=== PATIENT | male | born 2000 | race Two or more races ===

== ENCOUNTER 2024-08-15 18:37 | Emergency (ER) | payer MEDICAID, SELFPAY ==
--- NOTE | 2024-08-15 18:50 | PC.NURSE ---
no answer in lobby for vital signs
--- NOTE | 2024-08-15 19:00 | PC.NURSE ---
no answer in lobby for vital signs
--- NOTE | 2024-08-15 19:45 | PC.NURSE ---
no answer in lobby for vital signs
== END 2024-08-15 19:45 | disposition left against medical advice (07) ==
LOC: SERX 19:48
PROVIDERS: Emergency Provider Emergency Medicine
DX: Z53.21 Procedure and treatment not carried out due to patient leaving prior to being seen by health care provider (principal)

== ENCOUNTER 2024-12-21 10:37 | Emergency (ER) | payer MEDICAID, SELFPAY ==
[2024-12-21 10:48] VITALS: BP 179/117; PULSE 84; RESP 18; TEMP 36.6; O2SAT 98
--- NOTE | 2024-12-21 10:50 | EKG_ITS ---
[facility] Test Date: 2024-12-21 Pat Name: ELISA REESE Department: Room: - Gender: Male Software Lead: : 2000 Requested By: Juan Sena (TUBER MACHINE CUTTER) Order Number: [id number] Reading MD: Juan Sena (TUBER MACHINE CUTTER) Measurements Intervals [place] Rate: 81 P: 57 WA: 155 QRS: 50 QRSD: 81 T: 58 QT: 394 QTc: 459 Interpretive Statements SINUS RHYTHM LEFT ATRIAL ENLARGEMENT [-0.15mV P-WAVE IN V1/V2] NONSPECIFIC T-WAVE ABNORMALITY Compared to ECG 07/12/2023 05:07:51 Atrial abnormality now present ST (T wave) deviation no longer present Early repolarization no longer present Possible ischemia no longer present T-wave abnormality still present /store/S0/[id number]/ecg/[id number].pdf
--- NOTE | 2024-12-21 10:54 | XR_ITS ---
Examination: PA lateral chest 2 views TECHNIQUE: Upright PA lateral chest 2 views Date and time: December 21, 2024 1103 hours, comparison July 12, 2023 INDICATIONS: Chest pain shortness of breath tachycardia today. FINDINGS: Mild prominence of ventricle Mild vascular congestion. No lobar pneumonia or pulmonary edema IMPRESSION: Mild vascular congestion. No lobar pneumonia or pulmonary edema
--- NOTE | 2024-12-21 10:54 | EDRME_ITS ---
Rapid Medical Screening Exam [facility] Arrival date/time: 12/21/24 10:37 24-year-old male ESRD on dialysis presents to the emergency department of complaints of chest pressure and generalized weakness Chief Complaint: Shortness of Breath/Dyspnea Vital signs: Vital Signs Temperature 98 F 12/21/24 10:48 Pulse Rate 84 12/21/24 10:48 Respiratory Rate 18 12/21/24 10:48 Blood Pressure 179/117 H 12/21/24 10:48 Pulse Oximetry (%) 98 12/21/24 10:48 Oxygen Delivery Method Room Air 12/21/24 10:48
[2024-12-21 11:17] LABS: Basophils # (Auto) 0.0 Thou/mm3 (0.0-0.2); Basophils % (Auto) 1 % (0-2.5); Eosinophils # (Auto) 0.1 Thou/mm3 (0.0-0.5); Eosinophils % (Auto) 1 % (0-10); Hematocrit 29.8 % (41.0-53.0); Hemoglobin 10.8 g/dL (13.5-16.0); Immature Granulocytes Auto 0.02 Thou/mm3 (0.00-0.00); Lymphocytes # (Auto) 1.0 Thou/mm3 (1.0-4.8); Lymphocytes % (Auto) 12 % (10-50); Mean Corpuscular HGB Conc 36.2 g/dl (31.0-37.0); Mean Corpuscular Hemoglobin 36.6 pg (25.0-35.0); Mean Corpuscular Volume 101 fL (80-100); Monocytes # (Auto) 0.5 Thou/mm3 (0.0-0.8); Monocytes % (Auto) 5 % (0-12); Neutrophils # (Auto) 6.8 Thou/mm3 (1.8-7.7); Neutrophils % (Auto) 81 % (37-80); Nucleated Red Blood Cell # 0.00 Thou/mm3 (0.00-0.00); Nucleated Red Blood Cell % 0 /100 WBC (0); Platelet Count 112 Thou/mm3 (140-440); RDW Standard Deviation 52.3 fL (35.1-43.9); Red Blood Count 2.95 Miln/mm3 (4.50-5.90); White Blood Count 8.4 Thou/mm3 (3.8-10.6)
[2024-12-21 11:32] LABS: INR 1.1 (0.9-1.3); Partial Thromboplastin Time 26.4 Seconds (22.0-36.0); Prothrombin Time 11.6 Seconds (9.0-12.2)
[2024-12-21 11:39] LABS: B-Type Natriuretic Peptide 999 pg/mL (0-100)
--- NOTE | 2024-12-21 12:02 | PD.EDSOB ---
ED SOB =RME/HPI General Chief Complaint: Shortness of Breath/Dyspnea Stated Complaint: SOB, HEART RACING, DOESN'T FEEL WELL Time Seen by Provider: 12/21/24 11:53 Arrival date/time: 12/21/24 10:37 RME / HPI RME / HPI Narrative: 24-year-old male patient with significant history of ESRD on dialysis, was sent to us from hemodialysis, after patient done with his dialysis this morning, patient complaining of generalized body weakness, body aches, and was told to go to the emergency room because earlier the potassium was high he does not know the number. Patient is denying any cough denies any fever patient is ambulatory denies any other complaints. Related Data Home Medications ?Medication ?Instructions ?Recorded ?Confirmed calcium acetate 667 mg tablet 1,334 mg PO TID 06/20/23 06/20/23 Previous Rx's ?Medication ?Instructions ?Recorded amlodipine 10 mg tablet 10 mg PO QDAY #30 tabs 06/24/23 lisinopril 2.5 mg tablet 2.5 mg PO QDAY #30 tabs 06/24/23 vitamin B complex-vitamin C-folic 1 tab PO QDAY #30 tabs 06/24/23 acid 0.8 mg tablet (Nephro-Deshawn) Allergies Allergy/AdvReac Type Severity Reaction Status Date / Time No Known Allergies Allergy Verified 08/15/24 18:40 Review of Systems Review of Systems Narrative Review of Systems: Review of system reviewed and within normal limits except mentioned in HPI ED Exam Narrative Physical exam: VITAL SIGNS: Reviewed. GENERAL APPEARANCE: Alert and interactive, follows commands, no acute distress, HEAD AND FACE: Non-traumatic. ENT: PERRL, pink conjunctivitis, eyelid no trauma, Mucous membrane moist. NECK: Supple, nontender, no nuchal rigidity. CHEST: No tenderness, no crepitus, no paradoxical movement, no retractions. LUNGS: Clear, well ventilated, symmetric, no rales, no wheezing, no ronchi, no stridor, good breath sounds bilaterally. HEART: Regular rate, regular rhythm, no murmur, no gallops. ABDOMEN: Soft, positive bowel sounds, nondistended, no guarding, nontender, no rebound, no masses, RECTAL: Deferred. GENITAL: Deferred. NEUROLOGICAL: Gross motor function intact sensory function intact, Appropriate for age. MUSCULOSKELETAL: low back nontender, full range of motion. EXTREMITIES: Left arm AV fistula with thrill, nontender, full range of motion. SKIN: Color pink, dry, no rash, no lacerations, no abrasions, no contusions. LYMPHATICS: Deferred. Course Quality Measures none Orders Category Date Time Status Rigging Man NOW Care 12/21/24 10:54 Active EKG (ED ONLY) *Do not use* NOW Care 12/21/24 10:50 Completed EKG (ED Only) Stat Exams 12/21/24 10:50 Draft XR chest 2V Stat Exams 12/21/24 10:54 Completed B-Type Natriuretic Peptide Stat Lab 12/21/24 11:11 Completed CBC Stat Lab 12/21/24 11:11 Completed Comprehensive Metabolic Panel Stat Lab 12/21/24 11:11 Completed Drug Screen,Urine Stat Lab 12/21/24 10:54 Ordered Magnesium Stat Lab 12/21/24 11:11 Completed Partial Thromboplastin Time Stat Lab 12/21/24 11:11 Completed Prothrombin Time with INR Stat Lab 12/21/24 11:11 Completed Troponin I Stat Lab 12/21/24 11:11 Completed Urinalysis, C/S if Indicated Stat Lab 12/21/24 10:54 Ordered NIFEdipine [Procardia] Med 12/21/24 13:05 Discontinued 10 mg .ROUTE .STK-MED ONE NIFEdipine [Procardia] Med 12/21/24 12:51 Discontinued 20 mg PO X1 ONE Vital Signs Vital signs: Vital Signs Temperature 98 F 12/21/24 10:48 Pulse Rate 84 12/21/24 10:48 Respiratory Rate 18 12/21/24 10:48 Blood Pressure 179/117 H 12/21/24 10:48 Pulse Oximetry (%) 98 12/21/24 10:48 Oxygen Delivery Method Room Air 12/21/24 10:48 Shortness of Breath / Dyspnea MDM Narrative MDM Narrative:: 24-year-old male patient with significant history of ESRD on dialysis, was sent to us from hemodialysis, after patient done with his dialysis this morning, patient complaining of generalized body weakness, body aches, and was told to go to the emergency room because earlier the potassium was high he does not know the number. Patient is denying any cough denies any fever patient is ambulatory denies any other complaints. EKG showed normal sinus rhythm, ventricular rate of 81 bpm, no ST segment elevation or depression noted. Patient's laboratory workup came back with chronic kidney disease otherwise potassium is normal. Patient is unable to give us urine sample. Patient was given Procardia for blood pressure that is 179/117. Significant proving of hypertension noted in the emergency room. Patient is stable for discharge home. Patient data External records reviewed:: None Clinical information provided by:: patient Social determinants that could affect healthcare access:: none Patient has the following chronic illnesses:: ESRD hypertension How is presenting disease/condition affected by chronic disease/condition?: exacerbated by Evaluation data The following diagnostics were reviewed and interpreted by me:: lab results and EKG tracing(s) Lab and/or radiology exams considered but not ordered:: None Interpretation Summary: See results MDM Medications / Prescriptions Medications or Prescriptions considered but not ordered:: None Medication administrations:: Medication Administration History Discontinued Medications Nifedipine (Nifedipine 10 Mg Capsule) 20 mg PO X1 ONE Stop: 12/21/24 12:52 Last Admin: 12/21/24 13:02 Dose: 20 mg Documented By: GIOVANNY Nifedipine (Nifedipine 10 Mg Capsule) Confirm Administered Dose 10 mg .ROUTE .STK-MED ONE Stop: 12/21/24 13:06 Last Admin: 12/21/24 13:10 Dose: 10 mg Documented By: GIOVANNY Comments: WAS USED TO REPLACE CAPSULE THAT WAS DROPPED ON FLOOR TO COMPLETE FULL DOSE OF 20MG. Procardia Consultations Consultation(s) initiated? (list below): No Diagnosis Shortness of Breath Differential Diagnosis: congestive heart failure and community acquired pneumonia Most likely diagnosis given after review of the tests above:: Generalized weakness, ESRD Admission Indicated Admission indicated?: not indicated Admission Request Was there a request for admission?: No Disposition Plan Disposition Plan: Discharge Discharge Attestation Discharge Attestation: The patient was given an opportunity to ask questions and understood the discharge instructions. Discharge instructions specifically effects, indications for sooner follow up or return to the emergency department, and the expected course of current diagnosis. Patient condition: Stable Discharge Plan Plan Patient Disposition: HOME (Self Care) Discharge Disposition comment: Stable Prescriptions/Referrals Prescriptions/Med Rec: No Action calcium acetate 667 mg Tablet 1,334 mg PO TID amlodipine 10 mg tablet 10 mg PO QDAY Qty: 30 0RF lisinopril 2.5 mg Tablet 2.5 mg PO QDAY Qty: 30 0RF Nephro-Deshawn 0.8 mg Tablet 1 tab PO QDAY Qty: 30 0RF Referrals: Dayo Maldonado MD [Primary Care Provider, Family Practice] - In 1 week Problem List Clinical Impression: End-stage renal disease (ESRD), Weakness generalized Patient/Caregiver Discharge Instructions Discharge Activity: activity as tolerated Education Materials: Hemodialysis Additional Instructions: Thank you for the opportunity for serving you today. You are stable for discharged . You are advised to: Follow-up with your PCP in 1 to 2 days Return to ED for worsening of symptoms Print Language: Serbian Stand Alone Forms: Maria C Award Info., Patient Portal Info Letter PA/SPEECH PATHOLOGY SUPERVISOR Supervising Physician PA/SPEECH PATHOLOGY SUPERVISOR Supervising Physician: MD Tripp
[2024-12-21 12:07] LABS: Alanine Aminotransferase < 7 U/L (10-49); Albumin, Serum 4.7 gm/dL (3.5-5.0); Albumin/Globulin Ratio 2.0 (1.2-2.2); Alkaline Phosphatase 79 U/L (46-116); Anion Gap 14 (7-16); Aspartate Amino Transferase < 8 U/L (0-34); BUN/Creatinine Ratio 2 Ratio (12-20); Bilirubin,Total 1.0 mg/dL (0.3-1.2); Blood Urea Nitrogen 29 mg/dL (9-23); Calcium 9.3 mg/dL (8.3-10.6); Calcium (Corrected) 9.3 mg/dL (8.5-10.1); Carbon Dioxide 29.9 mMol/L (20.0-31.0); Chloride 89 mMol/L (98-107); Creatinine (Component) 11.8 mg/dL (0.6-1.3); Globulin 2.3 gm/dL (2.3-3.5); Glucose 139 mg/dL (74-106); Magnesium 1.7 mg/dL (1.6-2.6); Osmolality,Calculated 274 (275-295); Potassium 3.7 mMol/L (3.4-5.1); Sodium 133 mMol/L (136-145); Total Protein 7.0 gm/dL (5.7-8.2); Troponin I < 0.020 ng/mL (0.0-0.045); eGFR 6 See Note
[2024-12-21 13:02] VITALS: BP 179/117; PULSE 84
--- NOTE | 2024-12-21 13:08 | PC.NURSE ---
PT DROPPED 1 CAPSULE ON FLOOR, IT WAS DISCARDED, THIS RN DID AN OVERRIDE IN [place] TO REPLACE CAPSULE, SPOKE W/PHARMACY VLADIMIR WHO SAID IT WAS OK, MED DOES NOT NEED TO BE RE-SCANNED MED WAS ALREADY SCANNED PRIOR TO PT DROPPING THE MEDICATION
[2024-12-21 13:10] VITALS: BP 179/117; PULSE 84
[2024-12-21 13:52] VITALS: BP 162/106; PULSE 102; RESP 16; TEMP 36.6; O2SAT 99
--- NOTE | 2024-12-21 13:53 | PC.NURSE ---
PROVIDER SATISFIED WITH BP, OK TO D/C
== END 2024-12-21 14:00 | disposition home or self-care (01) ==
PROVIDERS: Nurse Practitioner Primary Care; Emergency Provider Family Medicine; PCP Family Medicine
DX: I12.0 Hypertensive chronic kidney disease with stage 5 chronic kidney disease or end stage renal disease (principal); N18.6 End stage renal disease; R53.1 Weakness; R07.9 Chest pain, unspecified; R06.02 Shortness of breath; R94.31 Abnormal electrocardiogram [ECG] [EKG]; Z99.2 Dependence on renal dialysis
CPT/HCPCS: 36415; 71046; 80053; 80307; 81001; 83735; 83880; 84484; 85025; 85610; 85730; 93005; 99284; A9270

== ENCOUNTER 2024-12-21 15:44 | Emergency (ER) | payer MEDICAID, SELFPAY ==
[2024-12-21 15:55] VITALS: BP 167/107; PULSE 82; RESP 16; TEMP 37.2; O2SAT 98
--- NOTE | 2024-12-21 17:01 | EDNOTE_ITS ---
ED Anxiety RME/HPI General Chief Complaint: Anxiety Stated Complaint: ANXIETY, TIRED, DOESN'T FEEL WELL Time Seen by Provider: 12/21/24 16:01 Arrival date/time: 12/21/24 15:44 24-year-old male presents to the emergency department today stating that he feels anxious patient was evaluated earlier today and had a full workup Limitations: no limitations Related Data Home Medications ?Medication ?Instructions ?Recorded ?Confirmed calcium acetate 667 mg tablet 1,334 mg PO TID 06/20/23 06/20/23 Previous Rx's ?Medication ?Instructions ?Recorded amlodipine 10 mg tablet 10 mg PO QDAY #30 tabs 06/23 lisinopril 2.5 mg tablet 2.5 mg PO QDAY #30 tabs 06/04 04/28 vitamin B complex-vitamin C-folic 1 tab PO QDAY #30 ta bs 06/24/23 acid 0.8 mg tablet (Nephro-Deshawn) ondansetron 4 mg disintegrating 4 mg PO Q6H PRN nausea and 12/22/24 tablet vomiting #20 tabs Allergies Allergy/AdvReac Type Severity Reaction Status Date / Time No Known Allergies Allergy Verified 08/15/24 18:40 Review of Systems Review of Systems Systems Reviewed: All systems reviewed, normal except as documented Constitutional Constitutional: Reports system reviewed and no additional complaints, except as documented, Denies fever(s) and Denies headache(s) Eyes Eyes: Reports system reviewed and no additional complaints, except as documented and Denies blurry vision ENT Ears, Nose, Mouth, and Throat: Reports system reviewed and no additional complaints, except as documented, Denies headache(s), Denies nasal congestion and Denies nasal discharge Cardiovascular Cardiovascular: Reports system reviewed and no additional complaints, except as documented, Denies chest pain and Denies dyspnea Respiratory Respiratory: Reports system reviewed and no additional complaints, except as documented, Denies chest congestion, Denies cough and Denies dyspnea Gastrointestinal Gastrointestinal: Reports system reviewed and no additional complaints, except as documented and Denies abdominal pain Integumentary/Breasts Skin/Breast: Reports system reviewed and no additional complaints, except as documented and Denies rash Neurologic Neurologic: Reports system reviewed and no additional complaints, except as documented, Reports as per HPI and Denies headache(s) Psychiatric Psychiatric: Reports system reviewed and no additional complaints, except as documented and Reports anxiety Past Medical History Past Medical History NEUROLOGIC: Negative Neurological Disorders or Seizures CARDIAC: Positive Cardiac Disorders and Hypertension; Negative Congestive Heart Failure, Edema, Cellulitis or Varicose Veins RESPIRATORY: Negative Chronic Obstructive Pulmonary Disease (COPD), Asthma, Tuberculosis or Sleep Apnea GASTROINTESTINAL: Negative Gastrointestinal Disorders, Hepatitis, Pancreatitis, Gall Bladder Disease, Ulcer, Hemorrhoids or Gastroesophageal Reflux Disease GENITOURINARY: Positive Genitourinary Disorders, Renal Disease and Dialysis MUSCULOSKELETAL: Positive Fractures; Negative Musculoskeletal Disorders ENDOCRINE: Negative Endocrine Disorders, Diabetes Mellitus Type 1 or Diabetes Mellitus Type 2 HEMATOLOGIC: Positive Blood Disorders and Anemia; Negative Sickle Cell Disease OTHER HISTORY: Positive Hospitalization, Chicken Pox, Measles and Mumps; Negative Autoimmune Disease, Shingles, Falls, Blood Transfusions, Blood Transfusion Reaction, Anesthesia Reactions, Chemotherapy, Radiation Therapy, MRSA or Cancer Family History FAMILY HISTORY: Positive Family Surgery; Negative Family Psychiatric Problems, Family Respiratory Disorders, Family Cardiac Disorders, Family Gastrointestinal Problems, Family Cancer or Family Anesthesia Reaction Surgical History SURGICAL: Positive Abdominal Surgery; Negative Pacemaker Social History SMOKING STATUS: Current every day smoker SUBSTANCE USE: does not use ED Exam General Limitations: Present no limitations General appearance: Present alert and in no apparent distress Head Head exam: Present atraumatic, normocephalic and normal inspection Eye Eye exam: Present normal appearance, PERRL and EOMI; Absent conjunctival injection ENT ENT exam: Present normal exam, normal oropharynx and mucous membranes moist Neck Neck exam: Present normal inspection, full ROM and trachea midline Chest Chest inspection: Present normal inspection and symmetric chest wall rise Respiratory Respiratory exam: Present normal lung sounds bilaterally; Absent respiratory distress Cardiovascular Cardiovascular exam: Present regular rate, normal rhythm and normal heart sounds Abdominal Exam Abdominal exam: Present soft and normal bowel sounds; Absent distention, tenderness, guarding, rebound or rigidity Extremities Exam Extremities exam: Present normal inspection and full ROM Back Exam Back exam: Present normal inspection and full ROM Neurological Exam Neurological exam: Present alert, oriented X3, CN II-XII intact, normal gait and reflexes normal; Absent motor sensory deficit Psychiatric Psychiatric exam: Present anxious Skin Skin exam: Present warm, dry, intact and normal color Course Quality Measures none Vital Signs Vital signs: Vital Signs Temperature 98.9 F 12/21/24 15:55 Pulse Rate 82 12/21/24 15:55 Respiratory Rate 16 12/21/24 15:55 Blood Pressure 167/107 H 12/21/24 15:55 Pulse Oximetry (%) 98 12/21/24 15:55 Oxygen Delivery Method Room Air 12/21/24 15:55 O2 saturation 98% room air within normal limits Anxiety MDM Narrative MDM Narrative: 24-year-old male presents to the emergency department today stating that he feels anxious patient was evaluated earlier today and had a full workup On exam patient well-appearing patient does not appear toxic no acute distress Reviewed patient's lab work and imaging from earlier no acute emergent findings noted patient does have chronic kidney disease which is reflected in the lab work Symptoms seem to be highly consistent with anxiety and stress I had a long conversation with patient patient states he would like to go home s tates he feels okay to leave Patient discharged home in no distress to follow-up with primary care doctor in the next 24 to 48 hours and for any worsening symptoms to return to the ER immediately Patient data External records reviewed:: [facility] previous records Clinical information provided by:: patient Social determinants that could affect healthcare access:: none Patient has the following chronic illnesses:: See history How is presenting disease/condition affected by chronic disease/condition?: caused by Evaluation data The following diagnostics were reviewed and interpreted by me:: lab results, radiology exam(s) and EKG tracing(s) Lab and/or radiology exams considered but not ordered:: Reviewed from earlier today Interpretation Summary: Reviewed Medications / Prescriptions Medications or Prescriptions considered but not ordered:: No meds Medication administrations:: No meds Consultations Consultation(s) initiated? (list below): No Diagnosis Differential diagnosis anxiety: hyperventilation, panic disorder and acute anxiety Most likely diagnosis given after review of the tests above:: Anxiety Admission Indicated Admission indicated?: not indicated Admission Request Was there a request for admission?: No Disposition Plan Disposition Plan: Discharge Discharge Attestation Discharge Attestation: The patient and all family members were given an opportunity to ask questions and understood the discharge instructions. Discharge instructions specifically effects, indications for sooner follow up or return to the emergency department, and the expected course of current diagnosis. Patient condition: Stable Discharge Plan Plan Patient Disposition: HOME (Self Care) Discharge Disposition comment: Stable Prescriptions/Referrals Prescriptions/Med Rec: No Action ondansetron 4 mg tablet,disintegrating 4 mg PO Q6H PRN (Reason: nausea and vomiting) Qty: 20 0RF calcium acetate 667 mg Tablet 1,334 mg PO TID amlodipine 10 mg tablet 10 mg PO QDAY Qty: 30 0RF lisinopril 2.5 mg Tablet 2.5 mg PO QDAY Qty: 30 0RF Nephro-Deshawn 0.8 mg Tablet 1 tab PO QDAY Qty: 30 0RF Problem List Clinical Impression: Anxiety about health, ESRD on dialysis Patient/Caregiver Discharge Instructions Education Materials: Kidney Problems Additional Instructions: Please follow up with your primary care doctor in the next 24-48hrs for any worsening symptoms return here immediately Feel free to return at any point for worsening symptoms or new concerns Print Language: Vietnamese Stand Alone Forms: Maria C Award Info., Patient Portal Info Letter PA/PHYSICIAN PRACTICE CONSULTANT Supervising Physician PA/PHYSICIAN PRACTICE CONSULTANT Supervising Physician: dr sutherland
== END 2024-12-21 16:29 | disposition home or self-care (01) ==
PROVIDERS: Emergency Provider Family Medicine
DX: F41.9 Anxiety disorder, unspecified (principal); N18.6 End stage renal disease; Z99.2 Dependence on renal dialysis
CPT/HCPCS: 99281

== ENCOUNTER 2024-12-21 18:29 | Emergency (ER) | payer MEDICAID, SELFPAY ==
[2024-12-21 20:14] VITALS: BP 206/125; PULSE 70; RESP 18; TEMP 36.6; O2SAT 98
--- NOTE | 2024-12-21 20:19 | XR_ITS ---
Examination: CT brain head without contrast. 2-D sagittal coronal reconstructions Date and time of exam:December 21, 20242027 hrs. Indications: Onset headache today CTDI: vol (mGy):45.7 DLP: (mGycm):901 Technique: Multiple CT axial sections of the brain have been obtained, 5 mm slice thickness. Contrast has not been administered. 2-D sagittal, coronal reconstructions have been obtained Low dose protocols were performed. One or more of the following dose reduction techniques were used; automated exposure control, adjustment of the mA and/or KV according to patient size, use of iterative reconstruction technique. Findings: No significant ventricular enlargement. Intra-axial or extra-axial hemorrhage density is not seen. No mass effect or midline shift Basal cisterns are not remarkable. Fourth ventricle is midline. Cranial vault intact. 20 mm left maxillary retention cyst Impression: Negative for acute hemorrhage, mass effect or midline shift
--- NOTE | 2024-12-21 20:20 | PD.EDRME ---
Rapid Medical Screening Exam RME Arrival date/time: 12/21/24 18:29 24M with history of ESRD presents to ED with 1 day of ORTIZ and N/V. This is patient 3rd visit today. Patient states he no longer smokes marijuana. Patient also has a cough. Chief Complaint: Flu Like Symptoms Vital signs: Vital Signs Temperature 98 F 12/21/24 20:14 Pulse Rate 70 12/21/24 20:14 Respiratory Rate 18 12/21/24 20:14 Blood Pressure 206/125 H 12/21/24 20:14 Pulse Oximetry (%) 98 12/21/24 20:14 Oxygen Delivery Method Room Air 12/21/24 20:14
[2024-12-21] MEDS: METOCLOPRAMIDE 5 MG TABLET PO (20:36)
[2024-12-21] MEDS: ACETAMINOPHEN 500 MG TABLET 1000 MG PO (20:36)
[2024-12-21 20:37] VITALS: BP 200/131; PULSE 73
[2024-12-21 23:31] VITALS: BP 173/102; PULSE 64; RESP 20; TEMP 36.9; O2SAT 99
--- NOTE | 2024-12-22 00:10 | PD.EDURI ---
Upper Respiratory Inf. RME/HPI General Chief Complaint: Flu Like Symptoms Stated Complaint: HEADACHE, N/V Time Seen by Provider: 12/21/24 22:20 Arrival date/time: 12/21/24 18:29 RME / HPI RME / HPI Narrative: 12/21/24 18:29 24M with history of ESRD presents to ED with 1 day of ORTIZ and N/V. This is patient 3rd visit today. Patient states he no longer smokes marijuana. Patient also has a cough. ------- Dr. 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 Patient denies any headache, chest pain, abdominal pain, or any other associated symptoms. Patient states he feels significantly better compared to when he came in and is hungry. NKA. Related Data Home Medications ?Medication ?Instructions ?Recorded ?Confirmed calcium acetate 667 mg tablet 1,334 mg PO TID 06/20/23 06/20/23 Previous Rx's ?Medication ?Instructions ?Recorded amlodipine 10 mg tablet 10 mg PO QDAY #30 tabs 06/24/23 lisinopril 2.5 mg tablet 2.5 mg PO QDAY #30 tabs 06/24/23 vitamin B complex-vitamin C-folic 1 tab PO QDAY #30 tabs 06/24/23 acid 0.8 mg tablet (Nephro-Deshawn) ondansetron 4 mg disintegrating 4 mg PO Q6H PRN nausea and 12/22/24 tablet vomiting #20 tabs Allergies Allergy/AdvReac Type Severity Reaction Status Date / Time No Known Allergies Allergy Verified 08/15/24 18:40 Review of Systems Review of Systems Systems Reviewed: All systems reviewed, normal except as documented Past Medical History Past Medical History NEUROLOGIC: Negative Neurological Disorders or Seizures CARDIAC: Positive Cardiac Disorders and Hypertension; Negative Congestive Heart Failure, Edema, Cellulitis or Varicose Veins RESPIRATORY: Negative Chronic Obstructive Pulmonary Disease (COPD), Asthma, Tuberculosis or Sleep Apnea GASTROINTESTINAL: Negative Gastrointestinal Disorders, Hepatitis, Pancreatitis, Gall Bladder Disease, Ulcer, Hemorrhoids or Gastroesophageal Reflux Disease GENITOURINARY: Positive Genitourinary Disorders, Renal Disease and Dialysis MUSCULOSKELETAL: Positive Fractures; Negative Musculoskeletal Disorders ENDOCRINE: Negative Endocrine Disorders, Diabetes Mellitus Type 1 or Diabetes Mellitus Type 2 HEMATOLOGIC: Positive Blood Disorders and Anemia; Negative Sickle Cell Disease OTHER HISTORY: Positive Hospitalization, Chicken Pox, Measles and Mumps; Negative Autoimmune Disease, Shingles, Falls, Blood Transfusions, Blood Transfusion Reaction, Anesthesia Reactions, Chemotherapy, Radiation Therapy, MRSA or Cancer Family History FAMILY HISTORY: Positive Family Surgery; Negative Family Psychiatric Problems, Family Respiratory Disorders, Family Cardiac Disorders, Family Gastrointestinal Problems, Family Cancer or Family Anesthesia Reaction Surgical History SURGICAL: Positive Abdominal Surgery; Negative Pacemaker Social History SMOKING STATUS: Current every day smoker SUBSTANCE USE: does not use ED Exam Narrative Physical exam: Generally patient is alert somewhat chronically ill-appearing but no obvious distress, neurologic exam shows Mayer Coma Scale of 15 without focal motor deficit, heart regular rate and rhythm, lungs clear to auscultation equal bilaterally, abdomen soft bowel sounds present nondistended nontender and rather benign exam, extremities show left upper extremity dialysis fistula in place Course Quality Measures none Orders Category Date Time Status Bedside COVID-19 Antigen Test NOW Care 12/21/24 20:21 Active Bedside Influenza A&B Antigen Test NOW Care 12/21/24 20:[address] head/brain wo con Stat Exams 12/21/24 20:19 Completed Acetaminophen Tab [Tylenol ES Tab] Med 12/21/24 20:24 Discontinued 1,000 mg PO X1 ONE DiphenhydrAMINE [Benadryl] Med 12/21/24 20:19 Discontinued 25 mg PO X1 ONE Metoclopramide [Reglan] Med 12/21/24 20:19 Discontinued 10 mg PO X1 ONE Metoclopramide [Reglan] Med 12/21/24 20:20 Discontinued 5 mg PO X1 ONE Ondansetron Odt [Zofran Odt] Med 12/22/24 00:17 Discontinued 4 mg PO X1 ONE hydrALAZINE HCL [Apresoline] Med 12/21/24 20:24 Discontinued 50 mg PO X1 ONE Vital Signs Vital signs: Vital Signs Temperature 98 F 12/21/24 20:14 Pulse Rate 70 12/21/24 20:14 Respiratory Rate 18 12/21/24 20:14 Blood Pressure 206/125 H 12/21/24 20:14 Pulse Oximetry (%) 98 12/21/24 20:14 Oxygen Delivery Method Room Air 12/21/24 20:14 Upper Respiratory Infection MDM Narrative MDM Narrative:: Scribe Attestation: 12/22/24 - I, Rachel Joel, am scribing for and in the presence of Dr. Adams. I interpreted all labs. Potassium is 3.7. COVID is negative. Influenza swabs were negative. Chest x-ray showed mild vascular edema. Head CT is negative. Patient wants to eat. He was given a sandwich here in the emergency room. There was no vomiting. Patient also received Zofran 4 mg p.o. Patient is stable for discharge home. Patient was already seen and evaluated here in the emergency room earlier in the day for similar complaint and problem. Patient data External records reviewed:: [facility] previous records (Per chart review, patient was seen here twice yesterday for ESRD and anxiety.) Clinical information provided by:: patient Social determinants that could affect healthcare access:: none Patient has the following chronic illnesses:: ESRD on HD 2/2 FSGS, HTN How is presenting disease/condition affected by chronic disease/condition?: uneffected by Evaluation data The following diagnostics were reviewed and interpreted by me:: lab results and radiology exam(s) Lab and/or radiology exams considered but not ordered:: none Interpretation Summary: [facility] Report Signed Patient: ELISA REESE Record#: [id number] Birthdate: 2000 Age/Sex: 24 / M Location: [facility] [place] Attending Dr: Ordering Physician: Corby Fernandez PA-C Date of Service: 12/21/24 Procedure(s): CT head/brain wo con Accession Number(s): [id number] cc: Juan Venegas PA-C; Stiven Goldberg MD; Corby Fernandez PA-C~ Examination: CT brain head without contrast. 2-D sagittal coronal reconstructions Date and time of exam:December 21, 20242027 hrs. Indications: Onset headache today CTDI: vol (mGy):45.7 DLP: (mGycm):901 Technique: Multiple CT axial sections of the brain have been obtained, 5 mm slice thickness. Contrast has not been administered. 2-D sagittal, coronal reconstructions have been obtained Low dose protocols were performed. One or more of the following dose reduction techniques were used; automated exposure control, adjustment of the mA and/or KV according to patient size, use of iterative reconstruction technique. Findings: No significant ventricular enlargement. Intra-axial or extra-axial hemorrhage density is not seen. No mass effect or midline shift Basal cisterns are not remarkable. Fourth ventricle is midline. Cranial vault intact. 20 mm left maxillary retention cyst Impression: Negative for acute hemorrhage, mass effect or midline shift Dictated By: Stiven Goldberg MD Signed By: <Electronically signed by Stiven Goldberg MD in OV> 12/21/24 2101 Medications / Prescriptions Medications or Prescriptions considered but not ordered:: none Medication administrations:: Medication Administration History Discontinued Medications Acetaminophen (Acetaminophen 500 Mg Tablet) 1,000 mg PO X1 ONE Stop: 12/21/24 20:25 Last Admin: 12/21/24 20:36 Dose: 1,000 mg Documented By: BOBY Diphenhydramine HCl (Diphenhydramine 25 Mg Capsule) 25 mg PO X1 ONE Stop: 12/21/24 20:20 Last Admin: 12/21/24 20:35 Dose: 25 mg Documented By: BOBY Hydralazine HCl (Hydralazine Hcl 25 Mg Tablet) 50 mg PO X1 ONE Stop: 12/21/24 20:25 Last Admin: 12/21/24 20:37 Dose: 50 mg Documented By: BOBY Metoclopramide HCl (Metoclopramide Liqd 10 Mg/10 Ml Udc) 10 mg PO X1 ONE Stop: 12/21/24 20:20 Metoclopramide HCl (Metoclopramide 5 Mg Tablet) 5 mg PO X1 ONE Stop: 12/21/24 20:21 Last Admin: 12/21/24 20:36 Dose: 5 mg Documented By: BOBY Ondansetron HCl (Ondansetron Odt 4 Mg Tabrap) 4 mg PO X1 ONE; Protocol Stop: 12/22/24 00:18 Last Admin: 12/22/24 00:22 Dose: 4 mg Documented By: DT see above Consultations Consultation(s) initiated? (list below): No Diagnosis Upper Respiratory Differential Diagnosis: other (See MDM) Most likely diagnosis given after review of the tests above:: see clinical impression below Admission Indicated Admission indicated?: not indicated Admission Request Was there a request for admission?: No Disposition Plan Disposition Plan: Discharge Discharge Attestation Discharge Attestation: The patient and all family members were given an opportunity to ask questions and understood the discharge instructions. Discharge instructions specifically effects, indications for sooner follow up or return to the emergency department, and the expected course of current diagnosis. Patient condition: Stable Discharge Plan Plan Patient Disposition: HOME (Self Care) Prescriptions/Referrals Prescriptions/Med Rec: New ondansetron 4 mg tablet,disintegrating 4 mg PO Q6H PRN (Reason: nausea and vomiting) Qty: 20 0RF No Action calcium acetate 667 mg Tablet 1,334 mg PO TID amlodipine 10 mg tablet 10 mg PO QDAY Qty: 30 0RF lisinopril 2.5 mg Tablet 2.5 mg PO QDAY Qty: 30 0RF Nephro-Deshawn 0.8 mg Tablet 1 tab PO QDAY Qty: 30 0RF Referrals: Juan Venegas PA-C [Primary Care Provider] - In 1 week Problem List Clinical Impression: Renal failure, Vomiting Patient/Caregiver Discharge Instructions Education Materials: ED Vomiting (Adult) Additional Instructions: Keep your dialysis appointments. Zofran as prescribed. Follow-up with your doctor. Return to ER as needed or if condition worsens. Print Language: Vietnamese Stand Alone Forms: Maria C Award Info., Patient Portal Info Letter
[2024-12-22 00:22] VITALS: BP 165/75; PULSE 85; RESP 14; TEMP 37; O2SAT 99
[2024-12-22] MEDS: ONDANSETRON ODT 4 MG TABRAP PO (00:22)
== END 2024-12-22 00:38 | disposition home or self-care (01) ==
PROVIDERS: Emergency Provider Emergency Medicine; PCP Physician Assistant
DX: I12.0 Hypertensive chronic kidney disease with stage 5 chronic kidney disease or end stage renal disease (principal); N18.6 End stage renal disease; R11.2 Nausea with vomiting, unspecified; R51.9 Headache, unspecified; F17.210 Nicotine dependence, cigarettes, uncomplicated; Z99.2 Dependence on renal dialysis
CPT/HCPCS: 70450; 87400; 87811; 99283; Q0162; A9270